=== PATIENT | female | born 1995 | race Caucasian/White ===

== ENCOUNTER → 2019-12-27 13:45 | Outpatient (CLI) | payer OTHER, SELFPAY ==
--- NOTE | ~2019-12-27 | US_ITS ---
EXAMINATION: US pelvic complete EXAM DATE: 12/27/2019 14:08 INDICATION: Missing IUD strings. TECHNIQUE: Pelvic transabdominal sonogram was performed. There are multiple grayscale and Doppler im ages available for interpretation. There is no prior study for comparison. FINDINGS: Uterus measures 8.5 x 3.1 x 5.1 cm, with IUD centrally located inside the endometrial cavi ty. Endometrial stripe measures 5 mm, within normal limits. There is no free pelvic fluid. Right adnexa: The ovary measures 5.8 x 4.0 x 4.7 cm and is morphologically normal, contains the domin ant physiologic follicle. Ovarian vascular flow confirmed. Left adnexa: The ovary measures 2.1 x 1.3 x 2.3 cm and is morphologically normal. Ovarian vascular fl ow confirmed. IMPRESSION: 1. Unremarkable pelvic ultrasound exam. Reviewed, dictated and finalized at location A.
== END ==
PROVIDERS: PCP Internal Medicine; Visit Provider Nurse Practitioner
DX: Z30.431 Encounter for routine checking of intrauterine contraceptive device (principal)
CPT/HCPCS: 76856